=== PATIENT | male | born 1970 | race Caucasian/White ===

== ENCOUNTER → 2019-09-09 10:43 | Outpatient (BNVA) | payer MEDICAID, SELFPAY | PROVIDERS: Family Provider Social Worker Clinical; PCP Registered Nurse; Referring Provider Family Medicine; Visit Provider Otolaryngology | DX: H93.92 Unspecified disorder of left ear (principal); H92.02 Otalgia, left ear; H93.19 Tinnitus, unspecified ear; H91.90 Unspecified hearing loss, unspecified ear; J34.2 Deviated nasal septum; J34.3 Hypertrophy of nasal turbinates; J34.89 Other specified disorders of nose and nasal sinuses; J32.9 Chronic sinusitis, unspecified; F17.210 Nicotine dependence, cigarettes, uncomplicated | CPT/HCPCS: 99203; 99214 ==

== ENCOUNTER → 2020-11-16 09:16 | Outpatient (BNVA) | payer MEDICAID, SELFPAY | PROVIDERS: Family Provider Social Worker Clinical; PCP Registered Nurse; Visit Provider Registered Nurse | DX: Z79.899 Other long term (current) drug therapy (principal); F31.32 Bipolar disorder, current episode depressed, moderate; F90.2 Attention-deficit hyperactivity disorder, combined type; F10.21 Alcohol dependence, in remission; F42.9 Obsessive-compulsive disorder, unspecified; F15.10 Other stimulant abuse, uncomplicated; Z03.89 Encounter for observation for other suspected diseases and conditions ruled out | CPT/HCPCS: 36415; 80061; 82306; 83036; 84443 ==

== ENCOUNTER → 2021-11-08 11:04 | Outpatient (BNVA) | payer MEDICAID, SELFPAY | PROVIDERS: Family Provider Social Worker Clinical; PCP Registered Nurse; Visit Provider Registered Nurse | DX: Z79.899 Other long term (current) drug therapy (principal) | CPT/HCPCS: 36415; 80053; 80061; 82306; 83036; 85025 ==